=== PATIENT | female | born 1975 | race Caucasian/White ===

== ENCOUNTER 2020-02-05 20:48 | Emergency (ER) | payer MEDICARE, MEDICAID ==
--- NOTE | 2020-02-05 21:06 | EDM.PDOC ---
ED HPI GENERAL MEDICAL PROBLEM - General Chief Complaint: Cardiovascular Problem Stated Complaint: HIGH BLOOD PRESSURE 175/112 NEEDS TO BE CHECKED Time Seen by Provider: 02/05/20 21:04 Source of Information: Reports: Patient History Limitations: Reports: No Limitations - History of Present Illness INITIAL COMMENTS - FREE TEXT/NARRATIVE: was taking her routine meds and checked BP and was high. denies CP/SOB/CARTY - Related Data Allergies Allergy/AdvReac Type Severity Reaction Status Date / Time mephobarbital [From Mebaral] Allergy Cannot Verified 02/05/20 21:02 Remember methylprednisolone Allergy Cannot Verified 02/05/20 21:02 Remember phenazopyridine Allergy Cannot Verified 02/05/20 21:02 Remember Sulfa (Sulfonamide Allergy Cannot Verified 02/05/20 21:02 Antibiotics) Remember sulfamethoxazole Allergy Cannot Verified 02/05/20 21:02 [From Bactrim] Remember trimethoprim [From Bactrim] Allergy Cannot Verified 02/05/20 21:02 Remember Home Meds: Home Meds Divalproex Sodium [Depakote ER] 500 mg PO DAILY 02/05/20 [History] Divalproex Sodium [Divalproex Sodium ER] 500 mg PO BEDTIME 02/05/20 [History] Docusate Sodium [Colace] 100 mg PO DAILY 02/05/20 [History] Doxycycline [Doxycycline Monohydrate] 100 mg PO BID 02/05/20 [History] Fenofibrate 160 mg PO DAILY 02/05/20 [History] LORazepam [Lorazepam] 1.5 mg PO BEDTIME 02/05/20 [History] Galien Carbonate [Lithobid] 300 mg PO BEDTIME 02/05/20 [History] Loratadine [Claritin] 10 mg PO DAILY 02/05/20 [History] Losartan [Cozaar] 50 mg PO DAILY 02/05/20 [History] Prazosin [Minpress] 3 mg PO TID 02/05/20 [History] Sertraline [Zoloft] 25 mg PO DAILY 02/05/20 [History] cloZAPine 100 mg PO DAILY 02/05/20 [History] cloZAPine [Clozapine] 200 mg PO BEDTIME 02/05/20 [History] rOPINIRole HCl [rOPINIRole] 3 mg PO BEDTIME 02/05/20 [History] traZODone HCl [Trazodone HCl] 200 mg PO BEDTIME 02/05/20 [History] ED ROS GENERAL - Review of Systems Review Of Systems: Comprehensive ROS is negative, except as noted in HPI. ED EXAM, GENERAL - Physical Exam Exam: See Below Exam Limited By: No Limitations General Appearance: Alert, WD/WN, Anxious, Mild Distress Eye Exam: Bilateral Eye: PERRL (pupils ess ER @ 4mm) Ears: Hearing Grossly Normal Throat/Mouth: Normal Voice, No Airway Compromise Neck: Non-Tender, Full Range of Motion Respiratory/Chest: No Respiratory Distress Cardiovascular: Regular Rate, Rhythm GI/Abdominal: Soft, Non-Tender (Female) Exam: Deferred Rectal (Female) Exam: Deferred Neurological: Alert, Oriented, Normal Cognition, Normal Gait, No Motor/Sensory Deficits Psychiatric: Anxious Skin Exam: Warm, Dry, Normal Color Lymphatic: No Adenopathy Course - Vital Signs Last Recorded V/S: Last Vital Signs Temp 36.6 C 02/05/20 21:11 Pulse 88 02/05/20 21:11 Resp 16 02/05/20 21:11 BP 118/88 02/05/20 21:11 Pulse Ox 98 02/05/20 21:11 - Re-Assessments/Exams Free Text/Narrative Re-Assessment/Exam: 02/05/20 21:37 re-exam; BP 118/76. Departure - Departure Time of Disposition: 21:38 Disposition: Home, Self-Care 01 Condition: Good Clinical Impression: Hypertension Qualifiers: Hypertension type: unspecified Qualified Code(s): I10 - Essential (primary) hypertension Instructions: Hypertension, Adult, [id number] Forms: ED Department Discharge Additional Instructions: 1) follow up with family doctor tomorrow Sepsis Event Note (ED) - Focused Exam Vital Signs: Vital Signs Temp Pulse Resp BP Pulse Ox 02/05/20 21:11 36.6 C 88 16 118/88 98
== END 2020-02-05 21:42 | disposition home or self-care (01) ==
LOC: DL.ED 20:48
DX: I10 Essential (primary) hypertension (principal); Z88.8 Allergy status to other drugs, medicaments and biological substances; Z88.2 Allergy status to sulfonamides; Z88.1 Allergy status to other antibiotic agents; Z79.899 Other long term (current) drug therapy
CPT/HCPCS: 99282; 99283

== ENCOUNTER 2020-05-09 15:36 | Emergency (ER) | payer MEDICARE, MEDICAID ==
--- NOTE | 2020-05-09 16:38 | EDM.PDOC ---
ED HPI GENERAL MEDICAL PROBLEM - General Chief Complaint: Abdominal Pain Stated Complaint: STOMACHE PAINS SHAKY CONFUSED Time Seen by Provider: 05/09/20 16:25 Source of Information: Reports: Patient History Limitations: Reports: No Limitations - History of Present Illness INITIAL COMMENTS - FREE TEXT/NARRATIVE: This 44 yo female patient reports to the ED due to lower abdominal pain and pressure with urination. The patient also reports she has noticed some dizziness. The patient reports she notices symptoms about 3 days ago that have been getting worse. The patient reports she had a normal bowel movement yesterday. The patient reports she did noticed some pressure with urination today. The patient also reports she thinks she may be due to her stomach moving. The patient reports she also has a "smokers cough" and was advised to quit smoking. Onset Date: 05/06/20 Duration: Constant Location: Reports: Abdomen (lower ) Quality: Reports: Dull, Pressure Severity: Moderate Improves with: Reports: None Worsens with: Reports: None Context: Reports: Other Associated Symptoms: Reports: No Other Symptoms Middle Abdomen Pain Score (Numeric/FACES): 10 - Related Data Allergies Allergy/AdvReac Type Severity Reaction Status Date / Time mephobarbital [From Mebaral] Allergy Cannot Verified 05/09/20 15:57 Remember methylprednisolone Allergy Cannot Verified 05/09/20 15:57 Remember phenazopyridine Allergy Cannot Verified 05/09/20 15:57 Remember Sulfa (Sulfonamide Allergy Cannot Verified 05/09/20 15:57 Antibiotics) Remember sulfamethoxazole Allergy Cannot Verified 05/09/20 15:57 [From Bactrim] Remember trimethoprim [From Bactrim] Allergy Cannot Verified 05/09/20 15:57 Remember Home Meds: Home Meds Cariprazine HCl [Vraylar] 4.5 mg PO DAILY 05/09/20 [History] Divalproex Sodium [Depakote ER] 2,000 mg PO BEDTIME 05/09/20 [History] Divalproex Sodium [Depakote] 250 mg PO BEDTIME 05/09/20 [History] Docusate Sodium [Colace] 100 mg PO DAILY 05/09/20 [History] Fenofibrate 160 tab PO ACLUNCH 05/09/20 [History] Ibuprofen 200 mg PO DAILY 05/09/20 [History] Loratadine [Allergy Relief] 10 mg PO DAILY 05/09/20 [History] Losartan [Cozaar] 50 mg PO DAILY 05/09/20 [History] Prazosin [Minpress] 2 mg PO BID 05/09/20 [History] Prazosin [Minpress] 3 mg PO BEDTIME 05/09/20 [History] Sertraline [Zoloft] 150 mg PO DAILY 05/09/20 [History] cloZAPine [Clozapine] 50 mg PO BEDTIME 05/09/20 [History] cloZAPine [Clozaril] 300 mg PO BEDTIME 05/09/20 [History] Past Medical History Cardiovascular History: Reports: Hypertension Psychiatric History: Reports: Developmental Delay, PTSD, Schizophrenia Social & Family History - Family History Family Medical History: No Pertinent Family History - Tobacco Use Tobacco Use Status *Q: Unknown Ever Used Tobacco - Caffeine Use Caffeine Use: Reports: Coffee - Recreational Drug Use Recreational Drug Use: No ED ROS GENERAL - Review of Systems Review Of Systems: Comprehensive ROS is negative, except as noted in HPI. ED EXAM, GI/ABD - Physical Exam Exam: See Below Exam Limited By: No Limitations General Appearance: Alert, WD/WN, Mild Distress Eyes: Bilateral: Normal Appearance, EOMI Ears: Normal External Exam, Normal Canal, Hearing Grossly Normal, Normal TMs Nose: Normal Inspection, Normal Mucosa, No Blood Throat/Mouth: Normal Inspection, Normal Lips, Normal Teeth, Normal Gums, Normal Oropharynx, Normal Voice, No Airway Compromise Head: Atraumatic, Normocephalic Neck: Normal Inspection, Supple, Non-Tender, Full Range of Motion Respiratory/Chest: No Respiratory Distress, Lungs Clear, Normal Breath Sounds, No Accessory Muscle Use, Chest Non-Tender Cardiovascular: Normal Peripheral Pulses, Regular Rate, Rhythm, No Edema, No Gallop, No JVD, No Murmur, No Rub GI/Abdominal Exam: Normal Bowel Sounds, Soft, No Organomegaly, No Distention, No Abnormal Bruit, No Mass, Pelvis Stable, Tender (lower abdomen), Other (obese) (Female) Exam: Deferred Rectal (Female) Exam: Deferred Back Exam: Normal Inspection, Full Range of Motion, NT Extremities: Normal Inspection, Normal Range of Motion, Non-Tender, Normal Capillary Refill, No Pedal Edema Neurological: Alert, Oriented, CN II-XII Intact, Normal Cognition, Normal Gait, Normal Reflexes, No Motor/Sensory Deficits Psychiatric: Normal Affect, Normal Mood Skin Exam: Warm, Dry, Intact, Normal Color, No Rash Lymphatic: No Adenopathy Course - Vital Signs Last Recorded V/S: Last Vital Signs Temp 35.9 C L 05/09/20 15:53 Pulse 106 H 05/09/20 15:53 Resp 16 05/09/20 15:53 BP 98/62 05/09/20 15:53 Pulse Ox 96 05/09/20 15:53 - Orders/Labs/Meds Orders: Active Orders 24 hr Category Date Time Status CULTURE URINE [RM] Stat Lab 05/09/20 16:27 Received Labs: Laboratory Tests 05/09/20 05/09/20 05/09/20 Range/Units 16:27 16:27 16:27 WBC (5.0-10.0) 10^3/uL RBC (4.2-5.4) 10^6/uL Hgb (12.0-16.0) g/dL Hct (37.0-47.0) % MCV (80-100) fL MCH (27.0-34.0) pg MCHC (33.0-35.0) g/dL Plt Count (150-450) 10^3/uL Neut % (Auto) (42.2-75.2) % Lymph % (Auto) (20.5-50.1) % [place] % (Auto) (2-8) % Eos % (Auto) (1.0-3.0) % Baso % (Auto) (0.0-1.0) % Sodium (136-145) mmol/L Potassium (3.5-5.1) mmol/L Chloride (98-107) mmol/L Carbon Dioxide (21-32) mmol/L Anion Gap (7-13) mEq/L BUN (7-18) mg/dL Creatinine (0.55-1.02) mg/dL Est Cr Clr Drug Dosing mL/min Estimated GFR (MDRD) BUN/Creatinine Ratio (No establ ref range) Glucose (74-99) mg/dL Calcium (8.5-10.1) mg/dL Total Bilirubin (0.2-1.0) mg/dL AST (15-37) U/L ALT (14-59) U/L Alkaline Phosphatase (46-116) U/L Total Protein (6.4-8.2) g/dL Albumin (3.4-5.0) g/dL Globulin Albumin/Globulin Ratio Amylase (25-115) U/L Lipase (73-393) U/L Urine Color [place]y (YELLOW) Urine Appearance Slightly cloudy (CLEAR) Urine pH 6.0 (5.0-9.0) Ur Specific [place] 1.025 (1.005-1.030) Urine Protein 100 H (NEGATIVE) Urine Glucose (UA) Negative (NEGATIVE) Urine Ketones 15 H (NEGATIVE) Urine Occult Blood Large H (NEGATIVE) Urine Nitrite Negative (NEGATIVE) Urine Bilirubin Small H (NEGATIVE) Urine Urobilinogen 2.0 H (0.2-1.0) mg/dL Ur Leukocyte Esterase Large H (NEGATIVE) Urine RBC 75-100 H /HPF Urine WBC 30-40 H (0-5/HPF) /HPF Ur Epithelial Cells Few (NOT SEEN) /HPF Urine Bacteria Moderate H (0-FEW/HPF) /HPF Urine Mucus Few H (NOT SEEN) /LPF Urine HCG, Qual Negative Urine Opiates Screen Negative (NEGATIVE) Ur Oxycodone Screen Negative (NEGATIVE) Urine Methadone Screen Negative (NEGATIVE) Ur Barbiturates Screen Negative (NEGATIVE) U Tricyclic Antidepress Negative (NEGATIVE) Ur Phencyclidine Scrn Negative (NEGATIVE) Ur Amphetamine Screen Negative (NEGATIVE) U Methamphetamines Scrn Negative (NEGATIVE) Urine MDMA Screen Negative (NEGATIVE) U Benzodiazepines Scrn Negative (NEGATIVE) Urine Cocaine Screen Negative (NEGATIVE) U Marijuana (THC) Screen Negative (NEGATIVE) SARS CoV-2 RNA Rapid SONA (NEGATIVE) 05/09/20 05/09/20 05/09/20 Range/Units 16:37 16:37 16:38 WBC 6.5 (5.0-10.0) 10^3/uL RBC 3.71 L (4.2-5.4) 10^6/uL Hgb 12.2 (12.0-16.0) g/dL Hct 37.8 (37.0-47.0) % MCV 101.9 H (80-100) fL MCH 32.9 (27.0-34.0) pg MCHC 32.3 L (33.0-35.0) g/dL Plt Count 163 (150-450) 10^3/uL Neut % (Auto) 68.5 (42.2-75.2) % Lymph % (Auto) 19.3 L (20.5-50.1) % [place] % (Auto) 10.9 H (2-8) % Eos % (Auto) 0.8 L (1.0-3.0) % Baso % (Auto) 0.5 (0.0-1.0) % Sodium 141 (136-145) mmol/L Potassium 4.6 (3.5-5.1) mmol/L Chloride 107 (98-107) mmol/L Carbon Dioxide 24 (21-32) mmol/L Anion Gap 14.6 H (7-13) mEq/L BUN 15 (7-18) mg/dL Creatinine 1.08 H (0.55-1.02) mg/dL Est Cr Clr Drug Dosing 58.00 mL/min Estimated GFR (MDRD) 55 BUN/Creatinine Ratio 13.9 (No establ ref range) Glucose 98 (74-99) mg/dL Calcium 8.1 L (8.5-10.1) mg/dL Total Bilirubin 0.5 (0.2-1.0) mg/dL AST 28 (15-37) U/L ALT 30 (14-59) U/L Alkaline Phosphatase 46 (46-116) U/L Total Protein 6.2 L (6.4-8.2) g/dL Albumin 2.8 L (3.4-5.0) g/dL Globulin 3.4 Albumin/Globulin Ratio 0.82 Amylase 23 L (25-115) U/L Lipase 75 (73-393) U/L Urine Color (YELLOW) Urine Appearance (CLEAR) Urine pH (5.0-9.0) Ur Specific [place] (1.005-1.030) Urine Protein (NEGATIVE) Urine Glucose (UA) (NEGATIVE) Urine Ketones (NEGATIVE) Urine Occult Blood (NEGATIVE) Urine Nitrite (NEGATIVE) Urine Bilirubin (NEGATIVE) Urine Urobilinogen (0.2-1.0) mg/dL Ur Leukocyte Esterase (NEGATIVE) Urine RBC /HPF Urine WBC (0-5/HPF) /HPF Ur Epithelial Cells (NOT SEEN) /HPF Urine Bacteria (0-FEW/HPF) /HPF Urine Mucus (NOT SEEN) /LPF Urine HCG, Qual Urine Opiates Screen (NEGATIVE) Ur Oxycodone Screen (NEGATIVE) Urine Methadone Screen (NEGATIVE) Ur Barbiturates Screen (NEGATIVE) U Tricyclic Antidepress (NEGATIVE) Ur Phencyclidine Scrn (NEGATIVE) Ur Amphetamine Screen (NEGATIVE) U Methamphetamines Scrn (NEGATIVE) Urine MDMA Screen (NEGATIVE) U Benzodiazepines Scrn (NEGATIVE) Urine Cocaine Screen (NEGATIVE) U Marijuana (THC) Screen (NEGATIVE) SARS CoV-2 RNA Rapid SONA Negative (NEGATIVE) Meds: Medications Discontinued Medications Generic Name Dose Route Start Last Admin Trade Name Freq PRN Reason Stop Dose Admin Cephalexin 500 mg 05/09/20 17:39 Cephalexin 500 Mg Cap PO 05/09/20 17:40 ONETIME ONE Departure - Departure Time of Disposition: 17:42 Disposition: Home, Self-Care 01 Condition: Fair Clinical Impression: Urinary tract infection Qualifiers: Urinary tract infection type: site unspecified Hematuria presence: with hematuria Qualified Code(s): N39.0 - Urinary tract infection, site not specified; R31.9 - Hematuria, unspecified - Discharge Information *PRESCRIPTION DRUG MONITORING PROGRAM REVIEWED*: Not Applicable *COPY OF PRESCRIPTION DRUG MONITORING REPORT IN PATIENT GIANNI: Not Applicable Instructions: Urinary Tract Infection, Adult, [id number] Forms: ED Department Discharge Care Plan Goals: The patient was advised of the examination, CT and lab results during the visit. The patient was given an oral dose of Keflex while in the ED. The patient was discharged with a script for Keflex (500 mg) #14 to take 1 by mouth 2 times per day for 5 days. If the patient has any additional symptoms or concerns, the patient should follow-up with her primary care facility or return to the emergency department. Sepsis Event Note (ED) - Evaluation Sepsis Screening Result: No Definite Risk - Focused Exam Vital Signs: Vital Signs Temp Pulse Resp BP Pulse Ox 05/09/20 15:53 35.9 C L 106 H 16 98/62 96 - My Orders Last 24 Hours: My Active Orders 05/09/20 16:27 CULTURE URINE [RM] Stat - Assessment/Plan Last 24 Hours: My Active Orders 05/09/20 16:27 CULTURE URINE [RM] Stat
[2020-05-09 17:03] LABS: ANION GAP 14.6 mEq/L (7-13)
--- NOTE | 2020-05-09 17:37 | CT ---
PROCEDURE INFORMATION: Exam: CT Abdomen And Pelvis Without Contrast Exam date and time: 05/09/2020 5:17 PM Age: 44 years old Clinical indication: Other: Lower abdominal pain with hematuria TECHNIQUE: Imaging protocol: Computed tomography of the abdomen and pelvis without contrast. Radiation optimization: All CT scans at this facility use at least one of these dose optimization techniques: automated exposure control; mA and/or kV adjustment per patient size (includes targeted exams where dose is matched to clinical indication); or iterative reconstruction. COMPARISON: No relevant prior studies available. FINDINGS: Lungs: The visualized lung bases are clear. Liver: The liver is normal. Gallbladder and bile ducts: There is a calcification in the jasmin hepatis, this likely reflects a calcified gallstone in a contracted gallbladder. This lies immediately adjacent to the common bile duct this is not appear to definitively lie in the common bile duct. Common bile duct diameter is 7 mm. There is no intrahepatic bile duct dilation. Pancreas: The pancreas is normal. Spleen: The spleen is normal. Adrenal glands: The adrenal glands are normal. Kidneys and ureters: 7 mm fat density lesion left kidney question angiomyolipoma.The kidneys are otherwise unremarkable. There is no evidence of urolithiasis. There is no evidence of hydronephrosis. The ureters are normal. Stomach and bowel: Non-specific/nonobstructive intestinal gas pattern. No specific small bowel or colonic abnormality is identified. The upper GI tract is normal. Appendix: A normal appendix is identified. Intraperitoneal space: No free intraperitoneal air. No free intraperitoneal fluid. Vasculature: There is mild diffuse calcific atherosclerotic plaque. There is no aortic aneurysm. Lymph nodes: There is no adenopathy. No pelvic adenopathy. Urinary bladder: Bladder is normal. Reproductive: The uterus is normal. No adnexal mass. There has been a tubal ligation. Bones/joints: There is mild endplate sclerosis and osteophyte formation identified throughout the lumbar segment. Mild diffuse facet disease is present. Soft tissues: There is no soft tissue abnormality seen. IMPRESSION: 1. Probable gallstone in a contracted gallbladder. There are no definite filling defects in the common bile duct. Correlate with LFTs. Consider ultrasound. 2. No hydronephrosis. No urolithiasis. 3. Other findings as described. COMMENTS: Consistent with the [employer]'s Incidental Findings Committee white paper (J Am Juan Manuel Radiol 2018): Any incidental renal lesion less than 1 cm or classified as too small to characterize, or any incidental cystic renal lesion characterized as simple-appearing, is likely benign. No follow-up imaging is recommended for these lesions per consensus recommendations based on imaging criteria.
[2020-05-09] MEDS ORDERED: Cephalexin 500 MG Cap PO ONE (17:39)
== END 2020-05-09 17:55 | disposition home or self-care (01) ==
LOC: DL.ED 15:36
DX: N39.0 Urinary tract infection, site not specified (principal); R31.9 Hematuria, unspecified; R42 Dizziness and giddiness; I10 Essential (primary) hypertension; F17.200 Nicotine dependence, unspecified, uncomplicated; E66.9 Obesity, unspecified; Z68.37 Body mass index [BMI] 37.0-37.9, adult; Z88.8 Allergy status to other drugs, medicaments and biological substances; Z88.2 Allergy status to sulfonamides; Z88.1 Allergy status to other antibiotic agents; Z79.899 Other long term (current) drug therapy; Z20.822 Contact with and (suspected) exposure to COVID-19
CPT/HCPCS: 36415; 74176; 80053; 80305; 81001; 81025; 82150; 83690; 85025; 87086; 99284; A9270; U0002

== ENCOUNTER 2020-08-30 13:28 | Emergency (ER) | payer MEDICARE, MEDICAID ==
--- NOTE | 2020-08-30 14:44 | EDM.PDOC ---
ED HPI GENERAL MEDICAL PROBLEM - General Chief Complaint: Cardiovascular Problem Stated Complaint: BLOOD PRESSURE ISSUES / VERY WEAK Time Seen by Provider: 08/30/20 14:15 Source of Information: Reports: Patient, Other History Limitations: Reports: No Limitations - History of Present Illness INITIAL COMMENTS - FREE TEXT/NARRATIVE: This 44 yo female patient was brought to the ED due to elevated blood pressures while she was at the home. The patient's caregiver reports the patient's blood pressures were in the upper 200's/the mid 100's while at home. The patient also reports she has been experiencing intermittent dizziness. The patient reports she has been very tired today and has had some intermittent dizziness. The patient's family reports there is some cardiac issues throughout the family. The patient did have several medication changes yesterday with dosing changes as well as added medication. Onset: Unknown/Unsure Duration: Day(s):, Constant, Getting Worse Location: Reports: Generalized Quality: Reports: Other Severity: Moderate Improves with: Reports: None Worsens with: Reports: None Context: Reports: Other Associated Symptoms: Reports: No Other Symptoms - Related Data Allergies Allergy/AdvReac Type Severity Reaction Status Date / Time mephobarbital [From Mebaral] Allergy Cannot Verified 05/09/20 15:57 Remember methylprednisolone Allergy Cannot Verified 05/09/20 15:57 Remember phenazopyridine Allergy Cannot Verified 05/09/20 15:57 Remember Sulfa (Sulfonamide Allergy Cannot Verified 05/09/20 15:57 Antibiotics) Remember sulfamethoxazole Allergy Cannot Verified 05/09/20 15:57 [From Bactrim] Remember trimethoprim [From Bactrim] Allergy Cannot Verified 05/09/20 15:57 Remember Home Meds: Home Meds Cariprazine HCl [Vraylar] 4.5 mg PO DAILY 05/09/20 [History] Divalproex Sodium [Depakote ER] 2,000 mg PO BEDTIME 05/09/20 [History] Divalproex Sodium [Depakote] 250 mg PO BEDTIME 05/09/20 [History] Docusate Sodium [Colace] 100 mg PO DAILY 05/09/20 [History] Fenofibrate 160 tab PO ACLUNCH 05/09/20 [History] Ibuprofen 200 mg PO DAILY 05/09/20 [History] Loratadine [Allergy Relief] 10 mg PO DAILY 05/09/20 [History] Losartan [Cozaar] 50 mg PO DAILY 05/09/20 [History] Prazosin [Minpress] 2 mg PO BID 05/09/20 [History] Prazosin [Minpress] 3 mg PO BEDTIME 05/09/20 [History] Sertraline [Zoloft] 150 mg PO DAILY 05/09/20 [History] cloZAPine [Clozapine] 50 mg PO BEDTIME 05/09/20 [History] cloZAPine [Clozaril] 300 mg PO BEDTIME 05/09/20 [History] Gabapentin [Neurontin] 600 mg PO BID 08/30/20 [History] Past Medical History Cardiovascular History: Reports: Hypertension Psychiatric History: Reports: Developmental Delay, PTSD, Schizophrenia Social & Family History - Family History Family Medical History: No Pertinent Family History - Tobacco Use Tobacco Use Status *Q: Never Tobacco User - Caffeine Use Caffeine Use: Reports: None - Recreational Drug Use Recreational Drug Use: No ED ROS GENERAL - Review of Systems Review Of Systems: Comprehensive ROS is negative, except as noted in HPI. ED EXAM, GENERAL - Physical Exam Exam: See Below Exam Limited By: No Limitations General Appearance: Alert, WD/WN, Mild Distress, Obese Eye Exam: Bilateral Eye: EOMI, Normal Inspection, PERRL Ears: Normal External Exam, Normal Canal, Hearing Grossly Normal, Normal TMs Nose: Normal Inspection, Normal Mucosa, No Blood Throat/Mouth: Normal Inspection, Normal Lips, Normal Teeth, Normal Gums, Normal Oropharynx, Normal Voice, No Airway Compromise Head: Atraumatic, Normocephalic Neck: Normal Inspection, Supple, Non-Tender, Full Range of Motion Respiratory/Chest: No Respiratory Distress, Lungs Clear, Normal Breath Sounds, No Accessory Muscle Use, Chest Non-Tender Cardiovascular: Normal Peripheral Pulses, Regular Rate, Rhythm, No Edema, No Gallop, No JVD, No Murmur, No Rub GI/Abdominal: Normal Bowel Sounds, Soft, Non-Tender, No Organomegaly, No Distention, No Abnormal Bruit, No Mass (Female) Exam: Deferred Rectal (Female) Exam: Deferred Back Exam: Normal Inspection, Full Range of Motion, NT Extremities: Normal Inspection, Normal Range of Motion, Non-Tender, Normal Capillary Refill, No Pedal Edema Neurological: Alert, Oriented, CN II-XII Intact, Normal Cognition, Normal Gait, Normal Reflexes, No Motor/Sensory Deficits Psychiatric: Normal Affect, Normal Mood Skin Exam: Warm, Dry, Intact, Normal Color, No Rash Lymphatic: No Adenopathy #1 Interpretation EKG Date: 08/30/20 Time: 14:14 Rhythm: NSR Rate (Beats/Min): 88 [place]: Normal P-Wave: Present QRS: Normal ST-T: Normal QT: Normal Comparison: NA - No Prior EKG Course - Vital Signs Last Recorded V/S: Last Vital Signs Temp 97.2 F 08/30/20 14:07 Pulse 90 08/30/20 14:07 Resp 20 08/30/20 14:07 BP 126/75 08/30/20 14:07 Pulse Ox 99 08/30/20 14:07 - Orders/Labs/Meds Orders: Active Orders 24 hr Category Date Time Status EKG Documentation Completion [RC] STAT Care 08/30/20 14:10 Active Labs: Laboratory Tests 08/30/20 08/30/20 Range/Units 14:26 14:26 WBC 6.5 (5.0-10.0) 10^3/uL RBC 3.54 L (4.2-5.4) 10^6/uL Hgb 11.5 L (12.0-16.0) g/dL Hct 36.3 L (37.0-47.0) % MCV 102.5 H (80-100) fL MCH 32.5 (27.0-34.0) pg MCHC 31.7 L (33.0-35.0) g/dL Plt Count 209 (150-450) 10^3/uL Neut % (Auto) 65.5 (42.2-75.2) % Lymph % (Auto) 20.8 (20.5-50.1) % [place] % (Auto) 10.8 H (2-8) % Eos % (Auto) 2.3 (1.0-3.0) % Baso % (Auto) 0.6 (0.0-1.0) % Sodium 144 (136-145) mmol/L Potassium 4.1 (3.5-5.1) mmol/L Chloride 109 H (98-107) mmol/L Carbon Dioxide 27 (21-32) mmol/L Anion Gap 12.1 (7-13) mEq/L BUN 16 (7-18) mg/dL Creatinine 0.85 (0.55-1.02) mg/dL Est Cr Clr Drug Dosing 82.99 mL/min Estimated GFR (MDRD) > 60 BUN/Creatinine Ratio 18.8 (No establ ref range) Glucose 97 (70-99) mg/dL Calcium 8.0 L (8.5-10.1) mg/dL Magnesium 2.0 (1.8-2.4) mg/dL Total Bilirubin 0.4 (0.2-1.0) mg/dL AST 31 (15-37) U/L ALT 26 (14-59) U/L Alkaline Phosphatase 49 (46-116) U/L Troponin I High Sens 5 (<=51) pg/mL Total Protein 6.1 L (6.4-8.2) g/dL Albumin 2.8 L (3.4-5.0) g/dL Globulin 3.3 Albumin/Globulin Ratio 0.85 Departure - Departure Time of Disposition: 16:01 Disposition: Home, Self-Care 01 Condition: Fair Clinical Impression: Dizziness Forms: ED Department Discharge Care Plan Goals: The patient and caregiver were advised of the examination, lab and EKG results during the visit. The patient was encouraged to avoid drinking soda, but was encouraged to increase the amount of water she drinks over the next 24-48 hours. If the patient has any additional symptoms or concerns, the patient should either return to the emergency department or visit her primary care facility. Sepsis Event Note (ED) - Evaluation Sepsis Screening Result: No Definite Risk - Focused Exam Vital Signs: Vital Signs Temp Pulse Resp BP Pulse Ox 08/30/20 14:07 97.2 F 90 20 126/75 99 - My Orders Last 24 Hours: My Active Orders 08/30/20 14:10 EKG Documentation Completion [RC] STAT - Assessment/Plan Last 24 Hours: My Active Orders 08/30/20 14:10 EKG Documentation Completion [RC] STAT
[2020-08-30 14:56] LABS: ANION GAP 12.1 mEq/L (7-13); CHLORIDE,CL 109 mmol/L (98-107); SODIUM,NA 144 mmol/L (136-145)
== END 2020-08-30 16:20 | disposition home or self-care (01) ==
LOC: DL.ED 13:28
DX: R42 Dizziness and giddiness (principal); I10 Essential (primary) hypertension; Z88.2 Allergy status to sulfonamides; Z88.1 Allergy status to other antibiotic agents; Z79.899 Other long term (current) drug therapy; Z88.8 Allergy status to other drugs, medicaments and biological substances
CPT/HCPCS: 36415; 80053; 83735; 84484; 85025; 93005; 93010; 99283; 99284-25